=== PATIENT | male | born 1965 | race Hispanic/Latino ===

== ENCOUNTER 2018-11-15 23:06 | Emergency (ER) | payer OTHER ==
[~2018-11-15] VITALS: Ht 177.8 cm; Wt 106.6 kg
--- OUTSIDE RECORDS SUMMARY | 2018-11-15 23:08 | XMS REPORT | Clinical Summary ---
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 Name Role Phone Toni Samayoa PCP Allergies No Known Allergies Medications No known medications Active Problems Problem Noted Date Chest pain 09/23/2016 Essential hypertension with goal blood pressure less than 130/80 03/16/2016 Transient cerebral ischemia, unspecified type 03/15/2016 Hypertriglyceridemia 03/15/2016 Social History Date Tobacco Use Types Packs/Day Years Used Never Smoker Alcohol Use Drinks/Week oz/Week Comments No Sex Assigned at Date Recorded Not on file Industry Job Start Date Occupation Not on file Not on file Not on file Travel End Travel History Travel Start No recent travel history available. Last Filed Vital Signs Not on file Plan of Treatment Not on file Results Not on fileafter 11/14/2017 Insurance Payer Benefit Subscriber ID Type Phone Address Plan / Group [employer] - [employer] C[employer] HMO xxxxxxxxxx HMO/POS POS QPOS (Home) [place] [address] Advance Directives For more information, please contact: [facility] [address] [place] [address] Date Inactivated Comments Code Status Date Activated 09/23/2016 6:47 PM Full Code 09/23/2016 5:41 AM This code status was determined by: Patient 03/17/2016 2:56 PM Full Code 03/15/2016 12:08 PM This code status was determined by: Patient
--- OUTSIDE RECORDS SUMMARY | 2018-11-15 23:08 | XMS REPORT ---
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 Allergies, Adverse Reactions, Alerts This patient has no known allergies or adverse reactions. Medications This patient has no known medications. Results Test Description Test Time Test Comments Text Results Atomic Results Result Comments TROPONIN I 2016-09-23 09:23:00 TROPONIN I (BUSHRAAKER) (test jyrd=327) < ng/mL 0.00-0.03 Effective 06/17/2014: Reference Range ChangeNew: 0.00-0.03 Previous 0.00-0.15T roponin I (TnI) levels must be interpreted in the context of the presenting symp toms and the clinical findings. Elevated TnI levels indicate myocardial damage, but are not specific for ischemic heart disease. Elevated TnI levels are seen in patients with other cardiac conditions (including myocarditis and congestive he art failure), and slight TnI elevations occur in patients with other conditions, including sepsis, renal failure, acidosis, acute neurological disease, and pers istent tachyarrhythmia.B-TYPE NATRIURETIC FACTOR (BNP)2016-09-23 02:30:00* Test Item Value Reference Range Comments B-TYPE NATRIURETIC PEPTIDE (BEAKER) (test gqss=336) < pg/mL 0-100 CREATINE KINASE (CK), TOTAL AND [id number] 02:29:00* Test Item Value Reference Range Comments CREATINE KINASE TOTAL (BEAKER) (test zmab=854) 94 U/L 29-200 CREATINE KINASE-MB (BEAKER) (test jgkd=143) 0.7 ng/mL 0.0-6.6 CREATINE KINASE-MB INDEX (BEAKER) (test goic=115) 0.7 % Effective 06/17/2014: CK-MB Reference Range ChangeNew: 0.0-6.6 Previous: 0.0- 4.9CK-MB Reference Range:<6.7 Normal6.7-10.0 Borderline>10.0 Abnormal TROPONIN [id number] 02:29:00* Test Item Value Reference Range Comments TROPONIN I (BEAKER) (test qjxv=052) < ng/mL 0.00-0.03 Effective 06/17/2014: Reference Range ChangeNew: 0.00-0.03 Previous 0.00-0.15T roponin I (TnI) levels must be interpreted in the context of the presenting symp toms and the clinical findings. Elevated TnI levels indicate myocardial damage, but are not specific for ischemic heart disease. Elevated TnI levels are seen in patients with other cardiac conditions (including myocarditis and congestive he art failure), and slight TnI elevations occur in patients with other conditions, including sepsis, renal failure, acidosis, acute neurological disease, and pers istent tachyarrhythmia.CBC W/PLT COUNT & AUTO [id number] 02:29:00* Test Item Value Reference Range Comments WHITE BLOOD CELL COUNT (BEAKER) (test jkwm=209) 10.5 K/ L 4.0-10.0 RED BLOOD CELL COUNT (BEAKER) (test cnma=555) 4.80 M/ L 4.20-5.80 HEMOGLOBIN (BEAKER) (test rgam=934) 11.9 GM/DL 13.0-16.8 HEMATOCRIT (BEAKER) (test kzyx=815) 35.1 % 40.0-50.0 MEAN CORPUSCULAR VOLUME (BEAKER) (test kupt=872) 73.3 fL 82.0-98.0 MEAN CORPUSCULAR HEMOGLOBIN (BEAKER) (test rlnj=355) 24.7 pg 27.0-33.0 MEAN CORPUSCULAR HEMOGLOBIN CONC (BEAKER) (test thba=681) 33.8 GM/DL 32.0-36.0 RED CELL DISTRIBUTION WIDTH (BEAKER) (test uvkd=995) 15.7 % 10.3-14.2 PLATELET COUNT (BEAKER) (test ksgv=959) 263 K/CU MM 150-430 MEAN PLATELET VOLUME (BEAKER) (test pith=185) 9.4 fL 6.5-10.5 NUCLEATED RED BLOOD CELLS (BEAKER) (test hfkn=246) 0 /100 WBC 0-0 NEUTROPHILS RELATIVE PERCENT (BEAKER) (test dcgo=561) 76 % LYMPHOCYTES RELATIVE PERCENT (BEAKER) (test dpfa=044) 16 % MONOCYTES RELATIVE PERCENT (BEAKER) (test hoic=870) 7 % EOSINOPHILS RELATIVE PERCENT (BEAKER) (test wprr=750) 1 % BASOPHILS RELATIVE PERCENT (BEAKER) (test nlhm=444) 1 % NEUTROPHILS ABSOLUTE COUNT (BEAKER) (test gvll=143) 7.91 K/ L 1.80-8.00 LYMPHOCYTES ABSOLUTE COUNT (BEAKER) (test wueo=559) 1.67 K/ L 1.48-4.50 MONOCYTES ABSOLUTE COUNT (BEAKER) (test frcp=174) 0.74 K/ L 0.00-1.30 EOSINOPHILS ABSOLUTE COUNT (BEAKER) (test ksxa=021) 0.09 K/ L 0.00-0.50 BASOPHILS ABSOLUTE COUNT (BEAKER) (test blib=387) 0.07 K/ L 0.00-0.20 0.00PT/[id number] 02:28:00* Test Item Value Reference Range Comments PROTIME (BEAKER) (test vufb=495) 13.7 seconds 11.7-14.7 INR (BEAKER) (test sjuk=194) 1.1 <=5.9 PARTIAL THROMBOPLASTIN TIME (BEAKER) (test mazb=409) 32.6 seconds 22.5-36.0 RECOMMENDED COUMADIN/WARFARIN INR THERAPY RANGESSTANDARD DOSE: 2.0 - 3.0 Inclu jasper: PROPHYLAXIS for venous thrombosis, systemic embolization; TREATMENT for chauncey ous thrombosis and/or pulmonary embolus.HIGH RISK: Target INR is 2.5-3.5 for pat ients with mechanical heart valves.BASIC METABOLIC [id number] 02:25:00* Test Item Value Reference Range Comments SODIUM (BEAKER) (test ulea=233) 140 meq/L 136-145 POTASSIUM (BEAKER) (test ueis=767) 3.9 meq/L 3.5-5.1 CHLORIDE (BEAKER) (test hwqs=994) 108 meq/L 98-107 CO2 (BEAKER) (test wvve=568) 24 meq/L 22-29 BLOOD UREA NITROGEN (BEAKER) (test bjtx=397) 12 mg/dL 7-21 CREATININE (BEAKER) (test ljvn=470) 1.15 mg/dL 0.57-1.25 GLUCOSE RANDOM (BEAKER) (test bmdm=632) 107 mg/dL 70-105 CALCIUM (Cometa) (test hthf=388) 8.9 mg/dL 8.4-10.2 EGFR (Cometa) (test gqhf=7165) mL/min/1.73 sq m INSUFFICIENT CLINICAL DATA TO CALCULATE ESTIMATED GFR.
[2018-11-15] MEDS ORDERED: ONDANSETRON HCL INJ 2MG/ML 2ML 2 MG/ML VIAL IV STA (23:18)
[2018-11-15] MEDS ORDERED: PANTOPRAZOLE 40 MG 10ML VIAL IV STA (23:18)
[2018-11-15 23:39] LABS: HEMATOCRIT 45.5 % (38.2-49.6); HEMOGLOBIN 15.2 g/dL (14.0-18.0); MEAN CORPUSCULAR HEMOGLOBIN 27.6 pg (28-32); MEAN CORPUSCULAR HGB CONC 33.4 g/dL (31-35); MEAN CORPUSCULAR VOLUME 82.7 fL (81-99); NEUTROPHILS % 65.9 % (38.7-80.0); PLATELET COUNT 219 x10e3/uL (140-360); RED CELL DISTRIBUTION WIDTH 14.2 % (11.7-14.4)
[2018-11-15 23:40] LABS: BASOPHILS % 0.4 % (0.0-1.0); EOSINOPHILS % 0.8 % (0.0-6.0); LYMPHOCYTES # (AUTO) 1.1 (1.0-3.2); LYMPHOCYTES % 22.4 % (18.0-39.1); MONOCYTES # (AUTO) 0.5 (0.2-0.8); MONOCYTES % 10.3 % (4.4-11.3); NEUTROPHILS # (AUTO) 3.1 (2.1-6.9)
[2018-11-15 23:59] LABS: COLOR,URINE YELLOW (YELLOW)
[2018-11-16] LABS: BILIRUBIN,URINE NEGATIVE (NEGATIVE); CLARITY,URINE CLEAR (CLEAR); KETONES,URINE NEGATIVE (NEGATIVE); LEUKOCYTE ESTERASE ,URINE NEGATIVE (NEGATIVE); NITRITE,URINE NEGATIVE (NEGATIVE); PROTEIN,URINE DIPSTICK NEGATIVE (NEGATIVE); URINE UROBILINOGEN 0.2 mg/dL (0.2 - 1)
[2018-11-16 00:01] LABS: BACTERIA,URINE FEW /HPF; EPITHELIAL CELLS,URINE FEW /LPF; WBC,URINE (MAN) 0-5 /HPF (0-5)
[2018-11-16 00:02] LABS: CARBON DIOXIDE 23 mmol/L (22-29); CHLORIDE 103 mmol/L (98-107); POTASSIUM 3.7 mmol/L (3.5-5.1); SODIUM 135 mmol/L (136-145)
--- NOTE | 2018-11-16 00:02 | Diagnostic Imaging Report ---
EXAMINATION: CHEST SINGLE (PORTABLE) COMPARISON: None INDICATION: Midsternal chest pain ^chest pain ^Y DISCUSSION: Frontal view of the chest obtained at 2348 hours. HEART AND MEDIASTINUM: The heart is enlarged. The aorta is tortuous LINES: None. LUNGS: Lung volumes are low. Pulmonary vasculature is prominent. No infiltrates. PLEURA: No pleural effusion or pneumothorax. BONES AND SOFT TISSUES: No focal osseous lesion. The soft tissues are normal. IMPRESSION: Cardiomegaly and vascular congestion. Signed by: Dr. Moises Bolanos MD on 11/15/2018 11:58 PM
[2018-11-16 00:03] LABS: BLOOD UREA NITROGEN 11 mg/dL (7-26); BUN/CREATININE RATIO 10 (6-25); CALCIUM 8.7 mg/dL (8.4-10.2); CREATININE, SERUM 1.15 mg/dL (0.72-1.25); EST GLOMERULAR FILTRATION RATE > 60 ML/MIN (60-); GLUCOSE 112 mg/dL (74-118)
[2018-11-16 00:04] LABS: ALANINE AMINOTRANSFERASE 24 IU/L (0-55); ALBUMIN 3.5 g/dL (3.5-5.0); ALKALINE PHOSPHATASE 88 IU/L (40-150); AMYLASE 70 U/L (25-125); CREATINE KINASE 82 IU/L (30-200); LIPASE 26 U/L (8-78)
[2018-11-16 00:45] VITALS: BP 158/102
== END 2018-11-16 00:45 | disposition home or self-care (01) ==
LOC: ER 23:06
DX: R07.89 Other chest pain (principal); R11.0 Nausea; R19.7 Diarrhea, unspecified; K52.9 Noninfective gastroenteritis and colitis, unspecified
CPT/HCPCS: 36415; 71045; 80053; 81001; 82150; 82550; 82553; 83690; 84484; 85025; 93005; 99284; C9113; J2405

== ENCOUNTER 2021-06-07 16:28 | Emergency (ER) | payer BC, OTHER ==
[~2021-06-07] VITALS: Ht 177.8 cm; Wt 106.6 kg
[2021-06-07] MEDS ORDERED: SODIUM CHLORIDE 0.9% 1000ML 1,000 ML IV STA (17:52)
[2021-06-07] MEDS ORDERED: ONDANSETRON HCL INJ 2MG/ML 2ML 2 MG/ML VIAL IV STA (17:52)
[2021-06-07] MEDS ORDERED: Morphine 4mg Syringe 4 MG/ML INJ IV STA (17:52)
[2021-06-07 18:33] LABS: BASOPHILS % 0.4 % (0.0-1.0); EOSINOPHILS # (AUTO) 0.4 (0.0-0.4); EOSINOPHILS % 3.4 % (0.0-6.0); HEMATOCRIT 45.2 % (38.2-49.6); LYMPHOCYTES # (AUTO) 2.4 (1.0-3.2); LYMPHOCYTES % 23.3 % (18.0-39.1); MEAN CORPUSCULAR HEMOGLOBIN 29.9 pg (28-32); MEAN CORPUSCULAR HGB CONC 33.2 g/dL (31-35); MONOCYTES % 9.2 % (4.4-11.3); NEUTROPHILS # (AUTO) 6.6 (2.1-6.9); NEUTROPHILS % 63.4 % (38.7-80.0); PLATELET COUNT 282 x10e3/uL (140-360); RED BLOOD COUNT 5.02 x10e6/uL (4.3-5.7); RED CELL DISTRIBUTION WIDTH 13.4 % (11.7-14.4)
[2021-06-07 18:49] LABS: CLARITY,URINE CLEAR (CLEAR); COLOR,URINE YELLOW (YELLOW); KETONES,URINE NEGATIVE (NEGATIVE); LEUKOCYTE ESTERASE ,URINE TRACE (NEGATIVE); NITRITE,URINE NEGATIVE (NEGATIVE); PROTEIN,URINE DIPSTICK NEGATIVE (NEGATIVE); URINE UROBILINOGEN 0.2 mg/dL (0.2 - 1)
[2021-06-07 18:50] LABS: BACTERIA,URINE MODERATE /HPF
[2021-06-07 18:51] LABS: EPITHELIAL CELLS,URINE FEW /LPF; HYALINE CASTS 0-1 (0-1); MUCUS,URINE MODERATE (RARE)
[2021-06-07 18:55] LABS: ALBUMIN 3.8 g/dL (3.5-5.0); ALBUMIN/GLOBULIN RATIO 1.2 (0.8-2.0); CALCIUM 8.9 mg/dL (8.4-10.2); CREATININE, SERUM 1.98 mg/dL (0.72-1.25)
[2021-06-07] MEDS ORDERED: KETOROLAC TROMETHAMINE 30 MG/ML VIAL IV STA (19:03)
[2021-06-07] MEDS ORDERED: KETOROLAC TROMETHAMINE 30 MG/ML VIAL ONE (19:13)
[2021-06-07] MEDS ORDERED: CEFTRIAXONE 1 GM VIAL ONE (19:14)
[2021-06-07] MEDS ORDERED: ACETAMINOPHEN-1 EAC4 PO (19:15)
[2021-06-07] MEDS ORDERED: CEFTRIAXONE 1 GM VIAL IV ONE (19:15)
[2021-06-07] MEDS ORDERED: CIPRO500 MG PO (19:15)
[2021-06-07] MEDS ORDERED: FLOMAX0.4 MG PO (19:15)
[2021-06-07] MEDS ORDERED: CEFTRIAXONE 1 GM in SODIUM CHLORIDE 0.9% 50ML 50 ML IV ONE (19:30)
== END 2021-06-07 19:33 | disposition home or self-care (01) ==
LOC: ER 16:34
DX: R11.2 Nausea with vomiting, unspecified (principal); N13.2 Hydronephrosis with renal and ureteral calculous obstruction; N39.0 Urinary tract infection, site not specified; N28.9 Disorder of kidney and ureter, unspecified; I10 Essential (primary) hypertension
CPT/HCPCS: 36415; 74176; 80053; 81001; 85025; 87086; 99284; J0696; J1885; J2270; J2405; J7030

== ENCOUNTER 2022-03-02 21:54 | Emergency (ER) | payer BC ==
[~2022-03-02] VITALS: Ht 177.8 cm; Wt 106.6 kg
[~2022-03-02 21:54] MED LIST: ACETAMINOPHEN-1 EAC4 PO; CIPRO500 MG PO; FLOMAX0.4 MG PO
[2022-03-02 22:28] LABS: BASOPHILS % 0.5 % (0.0-1.0); EOSINOPHILS # (AUTO) 0.5 (0.0-0.4); EOSINOPHILS % 6.8 % (0.0-6.0); HEMATOCRIT 45.9 % (38.2-49.6); HEMOGLOBIN 15.2 g/dL (14.0-18.0); LYMPHOCYTES # (AUTO) 2.5 (1.0-3.2); LYMPHOCYTES % 33.4 % (18.0-39.1); MEAN CORPUSCULAR HEMOGLOBIN 28.7 pg (28-32); MEAN CORPUSCULAR HGB CONC 33.1 g/dL (31-35); MEAN CORPUSCULAR VOLUME 86.8 fL (81-99); MONOCYTES # (AUTO) 0.5 (0.2-0.8); MONOCYTES % 6.3 % (4.4-11.3); NEUTROPHILS % 52.9 % (38.7-80.0); PLATELET COUNT 247 x10e3/uL (140-360); RED BLOOD COUNT 5.29 x10e6/uL (4.3-5.7); RED CELL DISTRIBUTION WIDTH 13.8 % (11.7-14.4)
[2022-03-02 22:45] LABS: ALANINE AMINOTRANSFERASE 23 IU/L (0-55); ALBUMIN 3.8 g/dL (3.5-5.0); ALBUMIN/GLOBULIN RATIO 1.1 (0.8-2.0); ALKALINE PHOSPHATASE 114 IU/L (40-150); ANION GAP 13.8 mmol/L (8-16); BLOOD UREA NITROGEN 14 mg/dL (7-26); BUN/CREATININE RATIO 11 (6-25); CALCIUM 8.7 mg/dL (8.4-10.2); CARBON DIOXIDE 26 mmol/L (22-29); CHLORIDE 107 mmol/L (98-107); CREATINE KINASE 104 IU/L (30-200); CREATININE, SERUM 1.27 mg/dL (0.72-1.25); GLUCOSE 120 mg/dL (74-118); POTASSIUM 3.8 mmol/L (3.5-5.1); SODIUM 143 mmol/L (136-145)
[2022-03-02] MEDS ORDERED: MECLIZINE HCL12.5 MG PO (23:35)
[2022-03-03 01:19] VITALS: BP 143/95
== END 2022-03-03 00:25 | disposition home or self-care (01) ==
LOC: ER 22:01
DX: R42 Dizziness and giddiness (principal); I10 Essential (primary) hypertension; Z86.73 Personal history of transient ischemic attack (TIA), and cerebral infarction without residual deficits
CPT/HCPCS: 36415; 70450; 71045; 80053; 82550; 82553; 84484; 85025; 93005; 99284